=== PATIENT | female | born 1985 | race Caucasian/White ===

== ENCOUNTER 2018-12-15 12:21 | Inpatient (IN) ==
--- NOTE | 2018-12-15 12:24 | Emergency Department Note ---
Disposition Clinical Impression: Diverticulitis, Abscess Leukocytosis Qualifiers: Leukocytosis type: unspecified Qualified Code(s): D72.829 - Elevated white blood cell count, unspecified Disposition: Admitted As Inpatient Condition: Fair Referrals: Isaac Beltran DO [Primary Care Provider] - Forms: Work/School Release, ED Satisfaction Letter Time of Disposition: 15:44 General Adult HPI - General Chief complaint: ED Abdominal Pain Stated complaint: ABD pain Time Seen by Provider: 12/15/18 12:24 Source: patient Mode of arrival: ambulatory Limitations: no limitations Nursing Notes Reviewed: Yes Vital Signs Reviewed: Yes - History of Present Illness HPI Narrative: 33-year-old female coming in today with chief complaint of abdominal pain and increasing pain with urination. She states that approximately 2 weeks ago she was treated for diverticulitis with ciprofloxacin and Flagyl. She states that her abdominal pain resolved but over the last 2 days has been increasing in severity. Abdominal pain is in the lower left quadrant rated as a 3 or 4 out of 10 and is sharp/crampy in nature. As of right now her pain is constant. She is not taking any medications prior to coming into the emergency room and states that nothing makes her pain better or worse. denies any fevers, chills, bloody diarrhea, nausea or vomiting. Able to tolerate food and water. She denies any chest pain, shortness of breath, dizziness, metastasis or hematochezia, loss of sensation or weakness. Pt Subjective Complaint: abd pain - Related Data Home Medications Medication Instructions Recorded Confirmed Sertraline [Zoloft] 50 mg PO DAILY 06/13/17 12/15/18 Loratadine [Claritin] 10 mg PO DAILY 11/23/18 12/15/18 Allergies Allergy/AdvReac Type Severity Reaction Status Date / Time azithromycin [From Zithromax] Allergy Hives Verified 11/15/18 20:17 ibuprofen Allergy Hives Verified 11/15/18 20:17 lamotrigine [From Lamictal] Allergy Hives Verified 11/15/18 20:17 Penicillins [PCN] Allergy Hives Verified 11/15/18 20:17 tramadol AdvReac Nausea Verified 11/15/18 20:17 Review of Systems: Constitutional: denies fever, chills Cardio: denies chest pain, palpiltations Lungs: denies SOB, wheeze, cough, hemoptysis GI: denies N/V/D, hematochezia; admits abdominal pain : denies dysuria, hematuria MSK: denies decreased ROM, joint swelling or stiffness; can ambultate on their own Neuro: deneis numbness or tingling, denies dizziness Skin: denies open wounds or cuts Psych: denies anxiety, depression Allergy: multiple medication allergies All systems ED: reviewed and negative except as stated. Review of Systems: As Per [facility] Past Medical History - Past Medical History Attestation: Yes The following information was validated with the patient. 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 Eyes: Sclera anicteric. ENT: Mucous membranes moist. Heart: Regular rate and rhythm without appreciable murmur. S1S2 CTA Neck: no JVD Lungs: Normal respiratory pattern without distress, lungs clear to auscultation b/l. No wheeze, rhonchi, rales or stridor Abdomen: Abdomen with tenderness to palpation in the lower left quadrant without any peritoneal signs. No rebound, there is voluntary guarding. No bruising noted to the abdomen. No surgical scars present. Skin: Warm and dry without rash. Neurologic: Awake and alert with normal speech and mental status. Pupils are equal. Moves all extremities equally well. No focal deficits or lateralizing signs. Follows command. Psychiatric: Mood and affect appropriate. Musculoskeletal: No peripheral edema. No asymmetrical swelling, no calf tenderness - General Limitations: no limitations General appearance: alert, in no apparent distress Course Course Narrative: Patient is a 33-year-old female with a recent history of diverticulitis. We will obtain a basic labs. Also will obtain a urinalysis due to increasing dysuria as per the patient. CT with contrast of the abdomen pending to rule out any abscess or fistula formation. Pt will be given zofran for nausea. Disposition pending. - Reevaluation(s) Reevaluation #1: pt Informed of her lab results. Agreeable to the plan however is under quite a lot of distress over not being able to smoke a cigarette. Time: 14:40 - Consultations Consultation #1: spoke to acute care surgery on-call, Dr. Freeman, he states to have the patient medicated with a surgery consult as an hospital as his primary. Also requested a interventional radiology consult order be placed. Time: 14:34 Consultation #2: Potential interventional radiology, Dr. Barahona Time: 14:47 Consultation #3: To Dr. Fierro, she informed me that the acute care surgery pv design and installation technician would be taking the patient for admission. Time: 15:47 Vital Signs Temperature 98.6 F 12/15/18 12:23 Pulse Rate 110 12/15/18 12:23 Respiratory Rate 18 12/15/18 12:23 Blood Pressure 130/88 12/15/18 12:23 O2 Sat by Pulse Oximetry 98 12/15/18 12:23 Temperature 98.6 F 12/15/18 12:33 Pulse Rate 84 12/15/18 15:24 Respiratory Rate 18 12/15/18 15:24 Blood Pressure 204/120 12/15/18 15:31 O2 Sat by Pulse Oximetry 100 12/15/18 15:24 Oxygen Delivery Oxygen Delivery Room Air Medical Decision Making - MDM Narrative Medical decision making narrative: Pt coming in with increasing abdominal pain and was found to have a worsening diverticulitis. She has a leukocytosis of 14.1 however there are no other remarkable labs. CT findings showed worsening sigmoid diverticulitis and been interval development of adjacent abscess with internal gas measuring 5.9 x 6.0 x 5.1cm. No definite intraperitoneal free air noted. Mass effect on the underlying urinary bladder by the abscess along with likely some reactive wall thickening to the superior urinary bladder wall. Started on cefepime and Flagyl to cover for intra-abdominal abdominal pathogens as well as anaerobes. Spoke to Dr. Pollock who is the on-call acute care surgeon, will be admitting the patient and interventional radiology consulted. Made aware of the lab results as well as the CT scan findings and she is acceptable to admission. She has no further questions agreeable to the plan. 1430: spoke to Dr. Barahona. He will be taking the patient back for an drainage of the abscess. Acute Care surgery and has put in orders and has put in on admission order. The patient will be moved up to the floor in a stable for transfer. - Medical Records Medical records reviewed: Yes I reviewed the patient's medical records. - Lab Data Lab results reviewed: Yes I reviewed the patient's lab results. Result diagrams: 12/15/18 12:40 12/15/18 12:40 Lab Results 12/15/18 12/15/18 12/15/18 Range/Units 12:40 12:40 12:40 WBC 14.8 H (4.3-11.1) K/mcL RBC 4.32 (3.82-4.97) M/mcL Hgb 13.2 (11.5-15.4) g/dL Hct 41.2 (35.3-44.9) % MCV 95.4 (83.0-100.0) fL MCH 30.6 (28.0-33.3) pg MCHC 32.0 (31.6-35.5) g/dL RDW 12.9 (11.5-14.5) % Plt Count 388 (140-400) K/mcL MPV 9.3 L (9.4-12.4) fL Immature Gran % 0.5 (0-4) % Seg Neutrophils % 81.4 % Lymphocytes % 11.4 % Monocytes % 5.3 % Eosinophils % 1.2 % Basophils % 0.2 % Neutrophils # 12.1 H (1.6-8.9) K/mcL Lymphocytes # 1.7 (0.6-4.6) K/mcL Monocytes # 0.8 (0.0-1.3) K/mcL Eosinophils # 0.2 (0.0-0.6) K/mcL Basophils # 0.0 (0.0-0.2) K/mcL PT (9.4-12.1) Seconds INR Sodium 136 (136-145) mEq/L Potassium 3.8 (3.5-5.1) mEq/L Chloride 104 (98-107) mEq/L Carbon Dioxide 26 (23-29) mEq/L BUN 9 (6-20) mg/dL Creatinine 0.75 (0.60-1.20) mg/dL Est GFR ( Amer) > 60 (> 60) Est GFR (Non-Af Amer) > 60 (> 60) BUN/Creatinine Ratio 12 (6-26) Glucose 105 (70-105) mg/dL Calculated Osmolality 281 (280-300) Calcium 8.8 (8.6-10.3) mg/dL Urine Color Yellow (Yellow) Urine Clarity Clear (Clear) Urine pH 6.0 (5.0-8.0) pH Units Ur Specific [place] 1.014 (1.010-1.025) Urine Protein Trace (Neg-Trace) mg/dL Urine Glucose (UA) Normal (Normal) mg/dL Urine Ketones Negative (Negative) mg/dL Urine Blood Small H (Negative) Urine Nitrite Negative (Negative) Urine Bilirubin Negative (Negative) Urine Urobilinogen Normal (Normal) mg/dL Ur Leukocyte Esterase Negative (Negative) Urine Microscopic RBC 5-15 H (0-3) per hpf Urine Microscopic WBC 0-3 (0-3) per hpf Ur Squamous Epith Cells Moderate H (None-Few) per lpf Urine Bacteria None Seen (None-Few) per hpf Hyaline Casts None Seen (None-Few) per lpf Ur Culture Indicated? NO (NO) 12/15/18 Range/Units 14:32 WBC (4.3-11.1) K/mcL RBC (3.82-4.97) M/mcL Hgb (11.5-15.4) g/dL Hct (35.3-44.9) % MCV (83.0-100.0) fL MCH (28.0-33.3) pg MCHC (31.6-35.5) g/dL RDW (11.5-14.5) % Plt Count (140-400) K/mcL MPV (9.4-12.4) fL Immature Gran % (0-4) % Seg Neutrophils % % Lymphocytes % % Monocytes % % Eosinophils % % Basophils % % Neutrophils # (1.6-8.9) K/mcL Lymphocytes # (0.6-4.6) K/mcL Monocytes # (0.0-1.3) K/mcL Eosinophils # (0.0-0.6) K/mcL Basophils # (0.0-0.2) K/mcL PT 12.8 H (9.4-12.1) Seconds INR 1.1 Sodium (136-145) mEq/L Potassium (3.5-5.1) mEq/L Chloride (98-107) mEq/L Carbon Dioxide (23-29) mEq/L BUN (6-20) mg/dL Creatinine (0.60-1.20) mg/dL Est GFR ( Amer) (> 60) Est GFR (Non-Af Amer) (> 60) BUN/Creatinine Ratio (6-26) Glucose (70-105) mg/dL Calculated Osmolality (280-300) Calcium (8.6-10.3) mg/dL Urine Color (Yellow) Urine Clarity (Clear) Urine pH (5.0-8.0) pH Units Ur Specific [place] (1.010-1.025) Urine Protein (Neg-Trace) mg/dL Urine Glucose (UA) (Normal) mg/dL Urine Ketones (Negative) mg/dL Urine Blood (Negative) Urine Nitrite (Negative) Urine Bilirubin (Negative) Urine Urobilinogen (Normal) mg/dL Ur Leukocyte Esterase (Negative) Urine Microscopic RBC (0-3) per hpf Urine Microscopic WBC (0-3) per hpf Ur Squamous Epith Cells (None-Few) per lpf Urine Bacteria (None-Few) per hpf Hyaline Casts (None-Few) per lpf Ur Culture Indicated? (NO) - Radiology Data Radiology results reviewed: Yes I reviewed the patient's radiology results. Abdomen/Pelvis CT 12/15/18 12:37 IMPRESSION: Persistent findings compatible with sigmoid diverticulitis as compared to prior exam 11/29/2018, worsened. In addition there has been interval development of adjacent abscess with internal gas measuring 5.9 x 6.0 x 5.1 cm. No definite intraperitoneal free air noted. Mass effect on the underlying urinary bladder by the abscess along with likely some reactive wall thickening to the superior urinary bladder wall. Persistent small amount of free fluid predominantly within the pelvis, likely reactive. D/ / 12/15/2018 14:09:03 Armando Santos MD / tamanna Interpreting Provider: Armadno Santos MD Attestation Statement - Attestation Attestation: I reviewed the residents documentation and agree with the residents assessment and plan of care. I have personally had face to face time with the patient. (Brief History, Brief Exam, and MDM) I personally supervised and was present for the richards/critical portions of the following procedures completed by the resident: (add procedures performed here). [id number] time provided Patient arrives complaining of left lower quadrant pain. She has a history of uncomplicated diverticulitis which was diagnosed 2 weeks ago. She does not appear in any acute distress on exam
[2018-12-15] MEDS ORDERED: Ondansetron 4 MG/2 ML VIAL IVP ONE (12:37)
[2018-12-15] MEDS ORDERED: Isovue-370 500 ML BOTTLE IVP ONE (12:37)
[2018-12-15 12:50] LABS: Bilirubin,Urine Negative (Negative); Blood,Urine Small (Negative); Clarity,Urine Clear (Clear); Color,Urine Yellow (Yellow); Glucose,Urine (UA) Normal (Normal); Ketones,Urine Negative (Negative); Leukocyte Esterase,Urine Negative (Negative); Nitrite,Urine Negative (Negative); Protein,Urine Trace mg/dL (Neg-Trace); Specific Gravity,Urine 1.014 (1.010-1.025); Urobilinogen,Urine Normal (Normal)
[2018-12-15 12:52] LABS: Bacteria,Urine None Seen per hpf (None-Few); Hyaline Casts,Urine None Seen per lpf (None-Few); Squamous Epithelial Cell,Urine Moderate per lpf (None-Few); WBC,Urine 0-3 per hpf (0-3)
[2018-12-15 12:53] LABS: Basophils % 0.2 %; Eosinophils # 0.2 K/mcL (0.0-0.6); Eosinophils % 1.2 %; Hematocrit 41.2 % (35.3-44.9); Hemoglobin 13.2 g/dL (11.5-15.4); Immature Granulocytes % 0.5 % (0-4); Lymphocytes # 1.7 K/mcL (0.6-4.6); Lymphocytes % 11.4 %; Mean Corpuscular Hemoglobin 30.6 pg (28.0-33.3); Mean Corpuscular Volume 95.4 fL (83.0-100.0); Mean Platelet Volume 9.3 fL (9.4-12.4); Monocytes # 0.8 K/mcL (0.0-1.3); Monocytes % 5.3 %; Neutrophils # 12.1 K/mcL (1.6-8.9); Platelet Count 388 K/mcL (140-400); Red Blood Count 4.32 M/mcL (3.82-4.97); Red Cell Distribution Width 12.9 % (11.5-14.5); Segmented Neutrophils % 81.4 %; White Blood Count 14.8 K/mcL (4.3-11.1)
[2018-12-15 13:12] LABS: BUN/Creatinine Ratio 12 (6-26); Blood Urea Nitrogen 9 mg/dL (6-20); Calcium 8.8 mg/dL (8.6-10.3); Carbon Dioxide 26 mEq/L (23-29); Chloride 104 mEq/L (98-107); Glucose 105 mg/dL (70-105); Osmolality,Calculated 281 (280-300); Potassium 3.8 mEq/L (3.5-5.1); Sodium 136 mEq/L (136-145); eGFR For African Americans > 60 (> 60); eGFR For Non-African Americans > 60 (> 60)
[2018-12-15] MEDS ORDERED: Piperacillin/Tazobactam 3.375 GM in 0.9 % Sodium Chloride Mini Bag 100 ML IVPB ONE (14:17)
[2018-12-15] MEDS ORDERED: Cefepime HCl 2,000 MG in Water for inj. (sterile) 20 ML IVP ONE (14:30)
[2018-12-15] MEDS ORDERED: MetroNIDAZOLE 500 MG/100 ML 500 MG/100 ML BAG IVPB ONE (14:30)
[2018-12-15] MEDS ORDERED: *HR* Midazolam HCl 2 MG/2 ML VIAL IVP ONE (14:44)
[2018-12-15] MEDS ORDERED: *HR* FentaNYL (PF) 100 MCG/2 ML VIAL IVP ONE (14:44)
--- NOTE | 2018-12-15 14:46 | Pre-Sedation Evaluation ---
Pre-sedation evaluation - Pre-sedation checklist Date of procedure: 12/15/18 Procedure: abscess drainage Recent Vitals: Last Vital Signs Temp 98.6 F 12/15/18 12:33 Pulse 82 12/15/18 14:31 Resp 18 12/15/18 14:31 BP 125/61 12/15/18 14:31 Pulse Ox 100 12/15/18 14:31 H&P (including ROS) documented in medical record: Yes Dietary Status: NPO 6 hours prior to procedure Airway Assessment: Patient can open mouth completely, TMJ function normal, Micrognathia (under-bite, receding chin) absent, Neck with adequate range of motion Possible difficult airway: No ASA Classification *see protocol: CLASS II-Mild systemic disease Plan of Care: Pt appropriate candidate for procedure/moderate/conscious sedation, Risks/benefits of procedure/sedation discussed w/ patient/family, If not NPO; Risk of intake outweiged by necessity to perform procedure Cardiac Registry (Cardio Only) - Clincal Frailty Scale Clinical Frailty Scale: Managing Well
[2018-12-15 14:56] LABS: INR 1.1; Prothrombin Time 12.8 Seconds (9.4-12.1)
[2018-12-15] MEDS ORDERED: 0.9 % Sodium Chloride 500 ML ONE (14:59)
--- NOTE | 2018-12-15 15:03 | AcuteCare Surgery Consult Note ---
Date of Encounter: 12/15/18 Time of Encounter: 15:00 Assessment and Plan (1) Diverticulitis of colon with perforation Current Visit: Yes Status: Acute Qualifiers: Diverticulitis bleeding: unspecified bleeding status Qualified Code(s): K57.20 - Diverticulitis of large intestine with perforation and abscess without bleeding Past Med Surg Social Fam HX - Past Medical History Medical history: asthma Additional medical history: diverticulitis, ovarion cysts on left ovary Psychiatric history: anxiety, bipolar, depression - Past Surgical History Surgical History: , hysterectomy, other Additional surgical history: R shoulder - Social History Smoking Status: Current every day smoker Smokeless Tobacco Status: No Alcohol use: none Drug use: none Medications and Allergies Sertraline [Zoloft] 50 mg PO DAILY 06/13/17 [History] Loratadine [Claritin] 10 mg PO DAILY 11/23/18 [History] Allergy/AdvReac Type Severity Reaction Status Date / Time azithromycin [From Zithromax] Allergy Hives Verified 11/15/18 20:17 ibuprofen Allergy Hives Verified 11/15/18 20:17 lamotrigine [From Lamictal] Allergy Hives Verified 11/15/18 20:17 Penicillins [PCN] Allergy Hives Verified 11/15/18 20:17 tramadol AdvReac Nausea Verified 11/15/18 20:17 Review of Systems All systems PM: The remainder of the systems were reviewed and are negative General Surgery Exam Initial Vital Signs Temp Pulse Resp BP Pulse Ox 98.6 F 110 18 130/88 98 12/15/18 12:23 12/15/18 12:23 12/15/18 12:23 12/15/18 12:23 12/15/18 12:23 Exam Initial Vital Signs Temp Pulse Resp BP Pulse Ox 98.6 F 110 18 130/88 98 12/15/18 12:23 12/15/18 12:23 12/15/18 12:23 12/15/18 12:23 12/15/18 12:23 Results - Labs 12/15/18 12:40 12/15/18 12:40 Abnormal lab results WBC 14.8 K/mcL (4.3-11.1) H 12/15/18 12:40 MPV 9.3 fL (9.4-12.4) L 12/15/18 12:40 Neutrophils # 12.1 K/mcL (1.6-8.9) H 12/15/18 12:40 Urine Blood Small (Negative) H 12/15/18 12:40 Urine Microscopic RBC 5-15 per hpf (0-3) H 12/15/18 12:40 Ur Squamous Epith Cells Moderate per lpf (None-Few) H 12/15/18 12:40 Diabetes panel 12/15/18 Range/Units 12:40 Sodium 136 (136-145) mEq/L Potassium 3.8 (3.5-5.1) mEq/L Chloride 104 (98-107) mEq/L Carbon Dioxide 26 (23-29) mEq/L BUN 9 (6-20) mg/dL Creatinine 0.75 (0.60-1.20) mg/dL Glucose 105 (70-105) mg/dL Calcium 8.8 (8.6-10.3) mg/dL Calcium panel 12/15/18 Range/Units 12:40 Calcium 8.8 (8.6-10.3) mg/dL Pituitary panel 12/15/18 Range/Units 12:40 Sodium 136 (136-145) mEq/L Potassium 3.8 (3.5-5.1) mEq/L Chloride 104 (98-107) mEq/L Carbon Dioxide 26 (23-29) mEq/L BUN 9 (6-20) mg/dL Creatinine 0.75 (0.60-1.20) mg/dL Glucose 105 (70-105) mg/dL Calcium 8.8 (8.6-10.3) mg/dL Adrenal panel 12/15/18 Range/Units 12:40 Sodium 136 (136-145) mEq/L Potassium 3.8 (3.5-5.1) mEq/L Chloride 104 (98-107) mEq/L Carbon Dioxide 26 (23-29) mEq/L BUN 9 (6-20) mg/dL Creatinine 0.75 (0.60-1.20) mg/dL Glucose 105 (70-105) mg/dL Calcium 8.8 (8.6-10.3) mg/dL All other labs normal. Consult Discharge Plan - Plan
[2018-12-15] MEDS ORDERED: Ondansetron 4 MG/2 ML VIAL IVP PRN (15:09)
[2018-12-15] MEDS ORDERED: *HR* Promethazine 25 MG/ML VIAL IVP PRN (15:09)
--- NOTE | 2018-12-15 15:19 | Acute Care Surgery H&P ---
<Delia Gray Salvador - Last Filed: 12/15/18 15:30> Date of Encounter: 12/15/18 Time of Encounter: 15:15 Assessment and Plan (1) Diverticulitis of colon with perforation Current Visit: Yes Status: Acute The assessment and plan as outlined above was discussed with the patient and/or family members who expressed understanding and agreement. All questions were answered. Patient was treated as outpatient (from ER) for diverticulitis (CT 11/29/2018 with acute sigmoid diverticulitis with at least moderate inflammatory changes). She was started on 7 days Cipro Flagyl. She re-presented to the emergency department on 12/15/2018 with complaints of worsening abdominal pain. There had been an interval development of an abscess with internal gas measuring 5.9 x 6.0 x 5.1 cm with no definite interest peritoneal free air. Interventional radiolog y, was consulted by the emergency department, for drain placement. Cultures of abdominal abscess aspirate have been placed. Blood cultures x2 have been ordered per the emergency department. Patient has an allergy to penicillins. We will continue IV ciprofloxacin and metronidazole. She has received one dose of set the Victoria while in the emergency department. Continue NPO except medication status IV fluids IV antibiotics repeat a.m. labs continue to closely monitor drain care consult social worker masters for home healthcare/drain management (do not anticipate the patient will discharge over the weekend) GI and DVT prophylaxis Qualifiers: Diverticulitis bleeding: unspecified bleeding status Qualified Code(s): K57.20 - Diverticulitis of large intestine with perforation and abscess without bleeding (2) Smoking addiction Current Visit: Yes Status: Acute The assessment and plan as outlined above was discussed with the patient and/or family members who expressed understanding and agreement. All questions were answered. Smoking cessation education nicotine patch History of Present Illness Chief complaint: Abdominal pain HPI: Ms. Smith is a 33 year old female who was treated as outpatient (from ER) for diverticulitis (CT 11/29/2018 with acute sigmoid diverticulitis with at least moderate inflammatory changes). She was started on 7 days Cipro Flagyl. She followed up with her PCP on 12/06/2018 at which time her Cipro and Flagyl were extended for a 10 day course. She re-presented to the emergency department on 12/15/2018 for abdominal pain that had resolved but over the last 2 days it had became much worse, left lower quadrant pain, sharpen crampy, and is now constant. Per record review she denied fever, chills, bloody diarrhea, nausea, or vomiting. Her clinical course thus far has included laboratory studies which noted white blood cell count 14.8, a CT of the abdomen and pelvis which noted progression of diverticulitis now with an abscess, she was given one dose of cefipime and IV Flagyl in the ER. Interventional radiology was consulted and the patient is being transferred to IR for drain placement. Past Med Surg Social Fam HX - Past Medical History Source: patient, old records reviewed Medical history: asthma Additional medical history: diverticulitis, ovarion cysts on left ovary, alopecia,areata Psychiatric history: anxiety, bipolar, depression - Past Surgical History Surgical History: , hysterectomy, other (LEEP; Uterine ablation) Additional surgical history: R shoulder - Social History Smoking Status: Current every day smoker Smokeless Tobacco Status: No Alcohol use: none Drug use: none Medications and Allergies Sertraline [Zoloft] 50 mg PO DAILY 06/13/17 [History] Loratadine [Claritin] 10 mg PO DAILY 11/23/18 [History] Allergy/AdvReac Type Severity Reaction Status Date / Time azithromycin [From Zithromax] Allergy Hives Verified 11/15/18 20:17 ibuprofen Allergy Hives Verified 11/15/18 20:17 lamotrigine [From Lamictal] Allergy Hives Verified 11/15/18 20:17 Penicillins [PCN] Allergy Hives Verified 11/15/18 20:17 tramadol AdvReac Nausea Verified 11/15/18 20:17 Review of Systems All systems PM: reviewed and no additional remarkable complaints except as stated All systems PM: The remainder of the systems were reviewed and are negative General Surgery Exam Initial Vital Signs Temp Pulse Resp BP Pulse Ox 98.6 F 110 18 130/88 98 12/15/18 12:23 12/15/18 12:23 12/15/18 12:23 12/15/18 12:23 12/15/18 12:23 Results - Labs 12/15/18 12:40 12/15/18 12:40 Abnormal lab results WBC 14.8 K/mcL (4.3-11.1) H 12/15/18 12:40 MPV 9.3 fL (9.4-12.4) L 12/15/18 12:40 Neutrophils # 12.1 K/mcL (1.6-8.9) H 12/15/18 12:40 PT 12.8 Seconds (9.4-12.1) H 12/15/18 14:32 Urine Blood Small (Negative) H 12/15/18 12:40 Urine Microscopic RBC 5-15 per hpf (0-3) H 12/15/18 12:40 Ur Squamous Epith Cells Moderate per lpf (None-Few) H 12/15/18 12:40 Diabetes panel 12/15/18 Range/Units 12:40 Sodium 136 (136-145) mEq/L Potassium 3.8 (3.5-5.1) mEq/L Chloride 104 (98-107) mEq/L Carbon Dioxide 26 (23-29) mEq/L BUN 9 (6-20) mg/dL Creatinine 0.75 (0.60-1.20) mg/dL Glucose 105 (70-105) mg/dL Calcium 8.8 (8.6-10.3) mg/dL Calcium panel 12/15/18 Range/Units 12:40 Calcium 8.8 (8.6-10.3) mg/dL Pituitary panel 12/15/18 Range/Units 12:40 Sodium 136 (136-145) mEq/L Potassium 3.8 (3.5-5.1) mEq/L Chloride 104 (98-107) mEq/L Carbon Dioxide 26 (23-29) mEq/L BUN 9 (6-20) mg/dL Creatinine 0.75 (0.60-1.20) mg/dL Glucose 105 (70-105) mg/dL Calcium 8.8 (8.6-10.3) mg/dL Adrenal panel 12/15/18 Range/Units 12:40 Sodium 136 (136-145) mEq/L Potassium 3.8 (3.5-5.1) mEq/L Chloride 104 (98-107) mEq/L Carbon Dioxide 26 (23-29) mEq/L BUN 9 (6-20) mg/dL Creatinine 0.75 (0.60-1.20) mg/dL Glucose 105 (70-105) mg/dL Calcium 8.8 (8.6-10.3) mg/dL All other labs normal. - Imaging CT scan - abdomen: report reviewed, image reviewed CT scan - pelvis: report reviewed, image reviewed <Chao Freeman M - Last Filed: 12/16/18 00:57> Date of Encounter: 12/15/18 Assessment and Plan (1) Diverticulitis of colon with perforation Current Visit: Yes Status: Acute The assessment and plan as outlined above was discussed with the patient and/or family members who expressed understanding and agreement. All questions were answered. Qualifiers: Diverticulitis bleeding: unspecified bleeding status Qualified Code(s): K57.20 - Diverticulitis of large intestine with perforation and abscess without bleeding (2) Smoking addiction Current Visit: Yes Status: Acute The assessment and plan as outlined above was discussed with the patient and/or family members who expressed understanding and agreement. All questions were answered. History of Present Illness HPI: Ms. Smith is a 33 year old female Review of Systems All systems PM: The remainder of the systems were reviewed and are negative General Surgery Exam Initial Vital Signs Temp Pulse Resp BP Pulse Ox 98.6 F 110 18 130/88 98 12/15/18 12:23 12/15/18 12:23 12/15/18 12:23 12/15/18 12:23 12/15/18 12:23 Results - Labs 12/15/18 12:40 12/15/18 12:40 Abnormal lab results WBC 14.8 K/mcL (4.3-11.1) H 12/15/18 12:40 MPV 9.3 fL (9.4-12.4) L 12/15/18 12:40 Neutrophils # 12.1 K/mcL (1.6-8.9) H 12/15/18 12:40 PT 12.8 Seconds (9.4-12.1) H 12/15/18 14:32 Urine Blood Small (Negative) H 12/15/18 12:40 Urine Microscopic RBC 5-15 per hpf (0-3) H 12/15/18 12:40 Ur Squamous Epith Cells Moderate per lpf (None-Few) H 12/15/18 12:40 Diabetes panel 12/15/18 Range/Units 12:40 Sodium 136 (136-145) mEq/L Potassium 3.8 (3.5-5.1) mEq/L Chloride 104 (98-107) mEq/L Carbon Dioxide 26 (23-29) mEq/L BUN 9 (6-20) mg/dL Creatinine 0.75 (0.60-1.20) mg/dL Glucose 105 (70-105) mg/dL Calcium 8.8 (8.6-10.3) mg/dL Calcium panel 12/15/18 Range/Units 12:40 Calcium 8.8 (8.6-10.3) mg/dL Pituitary panel 12/15/18 Range/Units 12:40 Sodium 136 (136-145) mEq/L Potassium 3.8 (3.5-5.1) mEq/L Chloride 104 (98-107) mEq/L Carbon Dioxide 26 (23-29) mEq/L BUN 9 (6-20) mg/dL Creatinine 0.75 (0.60-1.20) mg/dL Glucose 105 (70-105) mg/dL Calcium 8.8 (8.6-10.3) mg/dL Adrenal panel 12/15/18 Range/Units 12:40 Sodium 136 (136-145) mEq/L Potassium 3.8 (3.5-5.1) mEq/L Chloride 104 (98-107) mEq/L Carbon Dioxide 26 (23-29) mEq/L BUN 9 (6-20) mg/dL Creatinine 0.75 (0.60-1.20) mg/dL Glucose 105 (70-105) mg/dL Calcium 8.8 (8.6-10.3) mg/dL All other labs normal. - Attending Attestation I have personally performed a face to face evaluation on this patient. I have reviewed and agree with the care plan. History and Exam by me shows: I personally reviewed the above history and physical examination with the nurse practitioner and agree with the above plan. Patient has been having symptoms of lower abdominal pain for several days. She has previously been treated for diverticulitis and was also discharged home on oral antibiotics but because of continued increasing abdominal pain re-presented to the emergency room. CT scan showed evidence of a abscess that the sigmoid colon and bladder. She is currently in her room after having a percutaneous drain placed by interventional radiology. She is having some abdominal tenderness at this time. We will make certain that she has appropriate pain medication and I have explained to the patient I will at the most allow full liquids since we do not want food to traverse the colon in particular make her symptoms worse. Will start IV antibiotics and she needs to have at least 48 hours of IV antibiotics before transitioning to oral antibiotics. Will follow physical exam findings and repeat her labs in the morning.
[2018-12-15] MEDS ORDERED: *HR* Promethazine 25 MG/ML VIAL IVP ONE (15:30)
--- NOTE | 2018-12-15 15:34 | IR Procedure Note ---
Date of procedure: 12/15/18 Consent Obtained: Written consent Timeout: Correct patient and procedure verified, Correct site verified, Time out performed, Skin prep completed Local anesthetic: Lidocaine 1% Was there an review assistant present: No Estimated blood loss (cc): 0 Complications: None; Tolerated procedure well Indications: pelvic abscess Procedure Performed: drainage Site/Technique: anterior approach, 143F drain Results/Findings (any specimens removed): 80cc of pus removed and sent for cultures Post Procedure Treatment Plan: recovery, dc to floor Specimen: pus
[2018-12-15] MEDS: *HR* Heparin 5,000 UNIT/ML VIAL SQ SCH (17:04)
[2018-12-15] MEDS: 0.9 % Sodium Chloride 1,000 ML IVC SCH (17:11)
[2018-12-15] MEDS: Acetaminophen IV 1,000 MG/100 ML INFUS..BTL IVPB SCH ×2 (19:45→23:54)
[2018-12-15] MEDS: MetroNIDAZOLE 500 MG/100 ML 500 MG/100 ML BAG IVPB SCH (22:59)
[2018-12-16] MEDS: 0.9 % Sodium Chloride 1,000 ML IVC SCH ×3 (01:28→14:19)
[2018-12-16] MEDS: *HR* Heparin 5,000 UNIT/ML VIAL SQ SCH ×2 (05:56→17:16)
[2018-12-16] MEDS: Acetaminophen IV 1,000 MG/100 ML INFUS..BTL IVPB SCH ×3 (05:58→17:15)
[2018-12-16] MEDS: MetroNIDAZOLE 500 MG/100 ML 500 MG/100 ML BAG IVPB SCH ×2 (06:49→14:21)
[2018-12-16 07:07] LABS: Basophils % 0.3 %; Eosinophils # 0.2 K/mcL (0.0-0.6); Eosinophils % 2.6 %; Hematocrit 36.9 % (35.3-44.9); Immature Granulocytes % 0.8 % (0-4); Lymphocytes # 1.3 K/mcL (0.6-4.6); Mean Corpuscular HGB Conc 31.4 g/dL (31.6-35.5); Mean Corpuscular Volume 98.7 fL (83.0-100.0); Mean Platelet Volume 9.7 fL (9.4-12.4); Monocytes # 0.5 K/mcL (0.0-1.3); Monocytes % 7.2 %; Neutrophils # 5.3 K/mcL (1.6-8.9); Platelet Count 316 K/mcL (140-400); Red Blood Count 3.74 M/mcL (3.82-4.97); Red Cell Distribution Width 13.2 % (11.5-14.5); Segmented Neutrophils % 72.1 %
[2018-12-16 07:08] LABS: Hemoglobin 11.6 g/dL (11.5-15.4); White Blood Count 7.4 K/mcL (4.3-11.1)
[2018-12-16 07:26] LABS: BUN/Creatinine Ratio 8 (6-26); Blood Urea Nitrogen 6 mg/dL (6-20); Calcium 8.6 mg/dL (8.6-10.3); Carbon Dioxide 27 mEq/L (23-29); Chloride 101 mEq/L (98-107); Glucose 100 mg/dL (70-105); Magnesium 2.1 mg/dL (1.6-2.6); Osmolality,Calculated 280 (280-300); Phosphorous 3.2 mg/dL (2.7-4.5); Potassium 3.6 mEq/L (3.5-5.1); Sodium 136 mEq/L (136-145); eGFR For African Americans > 60 (> 60); eGFR For Non-African Americans > 60 (> 60)
[2018-12-16] MEDS: Pantoprazole 40 MG VIAL IVP SCH (07:58)
[2018-12-16] MEDS: Nicotine 14 MG PATCH.TD24 TD SCH (07:58)
--- NOTE | 2018-12-16 10:47 | AcuteCareSurgery Progress Note ---
Date of Encounter: 12/16/18 Time of Encounter: 10:45 - Assessment and Plan (1) Diverticulitis of colon with perforation Current Visit: Yes Status: Acute I explained to the patient that I am pleased that she is feeling better. Her white count has improved/decreased. The patient is somewhat anxious and is frustrated and stated that she once to go outside and smoke a cigarette which I explained she cannot do. I do think, however, it would be appropriate for us to go ahead and advance her diet to soft foods and see how she tolerates this change. Will continue with IV antibiotics. If she continues to do well over the night then we will consider possible discharge home within the next 24 hours. Will also have our charge nurse come in to talk to the patient given her frustrations with being in the hospital which, I completely understand given her lower abdominal pain and this infection that has been somewhat persistent. Qualifiers: Diverticulitis bleeding: unspecified bleeding status Qualified Code(s): K57.20 - Diverticulitis of large intestine with perforation and abscess without bleeding (2) Smoking addiction Current Visit: Yes Status: Acute Subjective Patient reports: other (Patient somewhat anxious. States pain has improved. Flauts. Decreased pain with urination.) Objective Vital Signs - Last 8 Hours Temp Pulse Resp BP Pulse Ox 12/16/18 08:10 97 12/16/18 07:57 97.9 F 62 17 113/79 97 12/16/18 03:38 97.3 F L 50 18 122/84 96 Intake and Output 12/15/18 12/16/18 12/16/18 23:59 07:59 15:59 Intake Total 400 / 520 1900 / 2520 620 / 2520 Output Total / 20 10 10 0 / 10 Balance 380 / 500 1890 / 2510 620 / 2510 Intake: IV Fluids 400 / 520 1500 / 2000 500 / 2000 0.9 % Sodium Chloride 1,000 ML 1000 / 1500 500 / 1500 @ 100 mls/hr IVC .Q10H SARAI Rx#: [id number] Ofirmev 1,000 mg/100 ml 1,000 100 / 100 200 / 200 mg In 100 ml @ 400 mls/hr IVPB Q6HR SARAI Rx#:[id number] Cipro Premix 400 MG/200 ML 400 200 / 200 200 / 200 mg In 200 ml @ 200 mls/hr IVPB Q12HR [facility]AI Rx#:[id number] Flagyl Premix 500 MG/100 ML 500 100 / 100 100 / 100 mg In 100 ml @ 100 mls/hr IVPB Q8H SARAI Rx#:[id number] Oral 400 / 520 120 / 520 Output: Wound Drainage 10 0 / 10 Left Lower Abdomen 0 / 10 Other: Meal Breakfast # Voids 1 1 - General physical appearance well nourished, no distress - Respiratory normal expansion, normal respiratory effort - Abdomen Abdomen: Present: bowel sounds present, tender (Alternatives to palpation in the left lower quadrant and pelvis. No masses palpated. Drain in place and has her sanguinous fluid) - Labs 12/16/18 06:34 12/16/18 06:34 Diabetes panel 12/15/18 12/16/18 Range/Units 12:40 06:34 Sodium 136 136 (136-145) mEq/L Potassium 3.8 3.6 (3.5-5.1) mEq/L Chloride 104 101 (98-107) mEq/L Carbon Dioxide 26 27 (23-29) mEq/L BUN 9 6 (6-20) mg/dL Creatinine 0.75 0.77 (0.60-1.20) mg/dL Glucose 105 100 (70-105) mg/dL Calcium 8.8 8.6 (8.6-10.3) mg/dL Calcium panel 12/15/18 12/16/18 Range/Units 12:40 06:34 Calcium 8.8 8.6 (8.6-10.3) mg/dL Phosphorus 3.2 (2.7-4.5) mg/dL Pituitary panel 12/15/18 12/16/18 Range/Units 12:40 06:34 Sodium 136 136 (136-145) mEq/L Potassium 3.8 3.6 (3.5-5.1) mEq/L Chloride 104 101 (98-107) mEq/L Carbon Dioxide 26 27 (23-29) mEq/L BUN 9 6 (6-20) mg/dL Creatinine 0.75 0.77 (0.60-1.20) mg/dL Glucose 105 100 (70-105) mg/dL Calcium 8.8 8.6 (8.6-10.3) mg/dL Adrenal panel 12/15/18 12/16/18 Range/Units 12:40 06:34 Sodium 136 136 (136-145) mEq/L Potassium 3.8 3.6 (3.5-5.1) mEq/L Chloride 104 101 (98-107) mEq/L Carbon Dioxide 26 27 (23-29) mEq/L BUN 9 6 (6-20) mg/dL Creatinine 0.75 0.77 (0.60-1.20) mg/dL Glucose 105 100 (70-105) mg/dL Calcium 8.8 8.6 (8.6-10.3) mg/dL Consult Discharge Plan - Plan Referrals: Isaac Beltran DO [Primary Care Provider] -
[2018-12-17] MEDS: Acetaminophen IV 1,000 MG/100 ML INFUS..BTL IVPB SCH ×2 (00:10→05:21)
[2018-12-17] MEDS: MetroNIDAZOLE 500 MG/100 ML 500 MG/100 ML BAG IVPB SCH ×2 (00:10→06:57)
[2018-12-17 02:52] LABS: Basophils % 0.6 %; Eosinophils # 0.2 K/mcL (0.0-0.6); Eosinophils % 3.8 %; Hematocrit 34.6 % (35.3-44.9); Hemoglobin 10.7 g/dL (11.5-15.4); Immature Granulocytes % 0.6 % (0-4); Lymphocytes # 1.5 K/mcL (0.6-4.6); Lymphocytes % 28.8 %; Mean Corpuscular HGB Conc 30.9 g/dL (31.6-35.5); Mean Corpuscular Hemoglobin 30.7 pg (28.0-33.3); Mean Corpuscular Volume 99.4 fL (83.0-100.0); Mean Platelet Volume 10.1 fL (9.4-12.4); Monocytes # 0.5 K/mcL (0.0-1.3); Monocytes % 8.7 %; Platelet Count 301 K/mcL (140-400); Red Blood Count 3.48 M/mcL (3.82-4.97); Red Cell Distribution Width 13.1 % (11.5-14.5); Segmented Neutrophils % 57.5 %; White Blood Count 5.3 K/mcL (4.3-11.1)
[2018-12-17 03:06] LABS: BUN/Creatinine Ratio 8 (6-26); Blood Urea Nitrogen 6 mg/dL (6-20); Calcium 8.5 mg/dL (8.6-10.3); Carbon Dioxide 27 mEq/L (23-29); Chloride 103 mEq/L (98-107); Glucose 115 mg/dL (70-105); Magnesium 1.9 mg/dL (1.6-2.6); Osmolality,Calculated 281 (280-300); Phosphorous 3.5 mg/dL (2.7-4.5); Potassium 3.8 mEq/L (3.5-5.1); Sodium 136 mEq/L (136-145); eGFR For African Americans > 60 (> 60); eGFR For Non-African Americans > 60 (> 60)
[2018-12-17] MEDS: 0.9 % Sodium Chloride 1,000 ML IVC SCH ×2 (05:22→08:26)
[2018-12-17] MEDS: *HR* Heparin 5,000 UNIT/ML VIAL SQ SCH (05:22)
[2018-12-17 06:56] VITALS: BP 127/81
[2018-12-17] MEDS: Pantoprazole 40 MG VIAL IVP SCH (07:45)
[2018-12-17] MEDS: Nicotine 14 MG PATCH.TD24 TD SCH (07:46)
--- NOTE | 2018-12-17 08:20 | Discharge Summary ---
Orders not resulted at time of discharge: Pending orders 12/15/18 15:36 Culture,Anaerobic [RM] Stat Culture,Wound [RM] Stat Fungal Culture [MYC] Stat 12/15/18 18:49 Culture,Blood [BC] Stat Date of Encounter: 12/17/18 Time of Encounter: 08:17 - Discharge Diagnosis (1) Diverticulitis of colon with perforation Priority: Primary Status: Acute Qualifiers: Diverticulitis bleeding: unspecified bleeding status Qualified Code(s): K57.20 - Diverticulitis of large intestine with perforation and abscess without bleeding (2) Smoking addiction Priority: Secondary Status: Acute General Surgery Exam Initial Vital Signs Temp Pulse Resp BP Pulse Ox 98.6 F 110 18 130/88 98 12/15/18 12:23 12/15/18 12:23 12/15/18 12:23 12/15/18 12:23 12/15/18 12:23 - Hospital Course Hospital course: Ms. Smith is a 33 year old female who presented to [facility] with symptoms of left lower quadrant abdominal pain for several days. She actually been treated previously at 1-2 weeks prior for diverticulitis with biotics without success. She presented on 12/15/[address] scan showed evidence of a diverticulitis with localized abscess in the pelvis. Individual radiology was consulted and placed a percutaneous drain in a patient was continued on IV antibiotics with the next 48 hours. She was able to tolerate a by mouth diet and actually had decreased abdominal pain and because of her improving symptoms she eventually was discharged home on 12/09/2018 with instructions to follow-up with [place] [facility] on 12/21/2018 for evaluation of the KERI drain. Time spent discussing smoking cessation with patient: 3 to 10 minutes - Time Spent with Patient Total time spent providing and/or coordinating discharge services: Less than 30 minutes - Discharge Medications Prescriptions: New Ciprofloxacin HCl [Cipro] 500 mg PO BID 14 Days #28 tablet Docusate [Colace] 100 mg PO BID 15 Days #30 capsule metroNIDAZOLE [Flagyl] 500 mg PO BID 14 Days #28 tablet OxyCODONE/APAP 5/325 [Percocet 5/325 MG] 1 each PO Q6HR PRN 7 Days #28 tablet PRN Reason: Pain No Action Sertraline [Zoloft] 50 mg PO DAILY Loratadine [Claritin] 10 mg PO DAILY Buspirone HCl [Buspar] 5 mg PO BID PRN PRN Reason: Anxiety Home Medications: Sertraline [Zoloft] 50 mg PO DAILY 06/13/17 [History] Loratadine [Claritin] 10 mg PO DAILY 11/23/18 [History] Buspirone HCl [Buspar] 5 mg PO BID PRN 12/16/18 [History] Ciprofloxacin HCl [Cipro] 500 mg PO BID 14 Days #28 tablet 12/17/18 [Rx] Docusate [Colace] 100 mg PO BID 15 Days #30 capsule 12/17/18 [Rx] OxyCODONE/APAP 5/325 [Percocet 5/325 MG] 1 each PO Q6HR PRN 7 Days #28 tablet 12/17/18 [Rx] metroNIDAZOLE [Flagyl] 500 mg PO BID 14 Days #28 tablet 12/17/18 [Rx] Allergies/Adverse Reactions: Allergy/AdvReac Type Severity Reaction Status Date / Time azithromycin [From Zithromax] Allergy Hives Verified 12/16/18 13:36 ibuprofen Allergy Hives Verified 12/16/18 13:36 lamotrigine [From Lamictal] Allergy Hives Verified 12/16/18 13:36 Penicillins [PCN] Allergy Hives Verified 12/16/18 13:36 tramadol AdvReac Nausea Verified 12/16/18 13:36 Date of admission: 12/15/18 18:32 Primary care physician: Isaac Beltran DO Consults: 12/15/18 14:19 Consult to Surgery [CONS] Stat Consulting Provider: Acute Care Surgery Reason for Consult: pericolic abscess Time Notified: 14:19 Call Completed: Yes 12/15/18 14:21 Consult to Interventional Radiology [CONS] Stat Consulting Provider: Radiology Interventional Cols Reason for Consult: divertic, abscess Call Completed: No 12/15/18 15:09 Consult to Medicine Aide [CONS] Routine Reason for SW Consult: drain care ([facility]) 12/15/18 17:30 Consult to Nutrition [CONS] Routine Comment: Consulting Provider: NUTRITION Reason for Dietary Consult: MST Score Discharging clinician: Chao Freeman Anticipated date of discharge: 12/17/18 Labs on day of discharge: Labs from last 24 hours 12/17/18 12/17/18 02:01 02:01 WBC 5.3 RBC 3.48 L Hgb 10.7 L Hct 34.6 L MCV 99.4 MCH 30.7 MCHC 30.9 L RDW 13.1 Plt Count 301 MPV 10.1 Immature Gran % 0.6 Seg Neutrophils % 57.5 Lymphocytes % 28.8 Monocytes % 8.7 Eosinophils % 3.8 Basophils % 0.6 Neutrophils # 3.0 Lymphocytes # 1.5 Monocytes # 0.5 Eosinophils # 0.2 Basophils # 0.0 Sodium 136 Potassium 3.8 Chloride 103 Carbon Dioxide 27 BUN 6 Creatinine 0.77 Est GFR ( Amer) > 60 Est GFR (Non-Af Amer) > 60 BUN/Creatinine Ratio 8 Glucose 115 H Calculated Osmolality 281 Calcium 8.5 L Phosphorus 3.5 Magnesium 1.9 Preliminary micro results at discharge 12/15/18 15:36 Wound Culture - Preliminary Abscess Gram Negative Mitch 12/15/18 18:49 Blood Culture - Preliminary Peripheral Venipuncture Culture is incubating and being continuously monitored for growth. Final report to follow. 12/15/18 14:32 Blood Culture - Preliminary Peripheral Venipuncture Culture is incubating and being continuously monitored for growth. Final report to follow. 12/15/18 15:36 Anaerobic Culture - Preliminary Aspirate Culture is incubating. - Impressions ITS Impressions Needle Aspiration CT 12/15/18 00:00 IMPRESSION: Successful CT guided placement of pelvic diverticular abscess drainage catheter. D/ / 12/15/2018 15:40:49 Gabriella Barahona MD / bcarter Interpreting Provider: Gabriella Barahona MD Abdomen/Pelvis CT 12/15/18 12:37 IMPRESSION: Persistent findings compatible with sigmoid diverticulitis as compared to prior exam 11/29/2018, worsened. In addition there has been interval development of adjacent abscess with internal gas measuring 5.9 x 6.0 x 5.1 cm. No definite intraperitoneal free air noted. Mass effect on the underlying urinary bladder by the abscess along with likely some reactive wall thickening to the superior urinary bladder wall. Persistent small amount of free fluid predominantly within the pelvis, likely reactive. D/ /15/2018 14:09:03 Armando Santos MD / [email or web address] Interpreting Provider: Armando Santos MD - Patient Status Disposition: Home, Self-Care Condition: Good - Discharge Instructions Follow Up With: Isaac Beltran DO [Primary Care Provider] - Additional Instructions: No heavy lifting greater than 15lbs for two weeks. May not return to work for two weeks. My office will contact the patient to schedule a follow up appointment early this week for , 12/21/18.
== END 2018-12-17 09:05 | disposition home or self-care (01) | DRG 244 ==
LOC: EMEROOARM 12:21 → 3ANU 12:21
PROVIDERS: ADMIT Surgery; ATTEND Surgery
PROC: IRDRAIN (2018-12-15 15:00)

== ENCOUNTER 2018-12-20 20:22 | Observation (INO) ==
[2018-12-20] MEDS ORDERED: Isovue-370 500 ML BOTTLE IVP ONE (20:52)
[2018-12-20] MEDS: 0.9 % Sodium Chloride 1,000 ML IVC SCH ×2 (21:12→23:44)
[2018-12-20 21:16] LABS: Basophils % 0.2 %; Eosinophils # 0.2 K/mcL (0.0-0.6); Eosinophils % 1.1 %; Hematocrit 39.2 % (35.3-44.9); Hemoglobin 12.7 g/dL (11.5-15.4); Immature Granulocytes % 0.5 % (0-4); Lymphocytes # 2.3 K/mcL (0.6-4.6); Lymphocytes % 15.6 %; Mean Corpuscular HGB Conc 32.4 g/dL (31.6-35.5); Mean Corpuscular Hemoglobin 30.8 pg (28.0-33.3); Mean Corpuscular Volume 95.1 fL (83.0-100.0); Mean Platelet Volume 9.3 fL (9.4-12.4); Monocytes # 0.9 K/mcL (0.0-1.3); Monocytes % 6.3 %; Neutrophils # 11.3 K/mcL (1.6-8.9); Platelet Count 368 K/mcL (140-400); Red Blood Count 4.12 M/mcL (3.82-4.97); Red Cell Distribution Width 13.1 % (11.5-14.5); Segmented Neutrophils % 76.3 %; White Blood Count 14.9 K/mcL (4.3-11.1)
[2018-12-20 21:24] LABS: INR 1.3; Prothrombin Time 14.2 Seconds (9.4-12.1)
[2018-12-20 21:27] LABS: Activated Partial Thrombo Time 30.4 Seconds (26.0-36.0)
[2018-12-20 21:39] LABS: Alanine Aminotransferase 11 Units/L (7-52); Albumin 3.6 g/dL (3.5-5.7); Albumin/Globulin Ratio 1.1 (1.1-2.2); Alkaline Phosphatase 60 Units/L (34-104); Aspartate Amino Transferase 10 Units/L (13-39); BUN/Creatinine Ratio 12 (6-26); Bilirubin,Direct 0.1 mg/dL (0.0-0.2); Bilirubin,Indirect 0.4 mg/dL (0.0-1.2); Bilirubin,Total 0.5 mg/dL (0.3-1.0); Blood Urea Nitrogen 8 mg/dL (6-20); Calcium 8.8 mg/dL (8.6-10.3); Carbon Dioxide 25 mEq/L (23-29); Chloride 102 mEq/L (98-107); Globulin 3.2 g/dL (2.4-3.5); Glucose 102 mg/dL (70-105); Magnesium 1.9 mg/dL (1.6-2.6); Osmolality,Calculated 279 (280-300); Phosphorous 2.5 mg/dL (2.7-4.5); Potassium 3.6 mEq/L (3.5-5.1); Sodium 135 mEq/L (136-145); Total Protein 6.8 g/dL (6.4-8.9); Troponin I < 0.03 ng/mL (< 0.04); eGFR For African Americans > 60 (> 60); eGFR For Non-African Americans > 60 (> 60)
[2018-12-20 21:55] LABS: Bilirubin,Urine Negative (Negative); Blood,Urine Negative (Negative); Clarity,Urine Clear (Clear); Color,Urine Yellow (Yellow); Glucose,Urine (UA) Normal (Normal); Ketones,Urine Negative (Negative); Leukocyte Esterase,Urine Negative (Negative); Nitrite,Urine Negative (Negative); PH,Urine 6.5 pH Units (5.0-8.0); Protein,Urine Negative (Neg-Trace); Specific Gravity,Urine 1.008 (1.010-1.025); Urobilinogen,Urine Normal (Normal)
[2018-12-20] MEDS ORDERED: Meropenem 1,000 MG in Water for inj. (sterile) 10 ML IVP SCH (22:00)
[2018-12-20] MEDS ORDERED: methylPREDNISolone 125 MG/2 ML VIAL IVP ONE (22:39)
[2018-12-21] MEDS ORDERED: Morphine Sulfate 2 MG/ML SYRINGE IVP ONE ×2 (00:04→00:15)
[2018-12-21] MEDS ORDERED: *HR* HYDROcodone/Acet 5/325 mg TABLET PO PRN (01:20)
[2018-12-21] MEDS ORDERED: Naloxone 0.4 MG/ML INJ IVP PRN (01:20)
[2018-12-21] MEDS ORDERED: Ondansetron ODT 4 MG TAB.RAPDIS SL PRN (01:20)
[2018-12-21] MEDS: 0.9 % Sodium Chloride 1,000 ML IVC SCH ×3 (01:37→16:11)
[2018-12-21 02:12] LABS: Basophils % 0.1 %; Eosinophils % 0.2 %; Hematocrit 39.8 % (35.3-44.9); Hemoglobin 12.8 g/dL (11.5-15.4); Immature Granulocytes % 0.4 % (0-4); Lymphocytes # 1.2 K/mcL (0.6-4.6); Mean Corpuscular HGB Conc 32.2 g/dL (31.6-35.5); Mean Corpuscular Volume 96.4 fL (83.0-100.0); Mean Platelet Volume 9.2 fL (9.4-12.4); Monocytes # 0.3 K/mcL (0.0-1.3); Monocytes % 1.5 %; Neutrophils # 14.9 K/mcL (1.6-8.9); Platelet Count 347 K/mcL (140-400); Red Blood Count 4.13 M/mcL (3.82-4.97); Red Cell Distribution Width 13.2 % (11.5-14.5); Segmented Neutrophils % 90.8 %; White Blood Count 16.4 K/mcL (4.3-11.1)
[2018-12-21] MEDS: MetroNIDAZOLE 500 MG/100 ML 500 MG/100 ML BAG IVPB SCH ×3 (07:45→23:27)
[2018-12-21] MEDS ORDERED: Fluconazole 400 MG/200 ML 400 MG/200 ML BAG IVPB ONE (08:25)
[2018-12-21] MEDS: levoFLOXacin 750 MG/150 ML 750 MG/150 ML BAG IVPB SCH (09:06)
[2018-12-21] MEDS: *HR* OxyCODONE/APAP 7.5/325 TABLET PO PRN ×2 (12:05→19:59)
[2018-12-21] MEDS: Psyllium 1 PACKET POWD.PACK PO SCH (19:53)
[2018-12-22] MEDS ORDERED: HydrOXYzine SYP 10 MG/5 ML UDC PO ONE (03:00)
[2018-12-22] MEDS: *HR* OxyCODONE/APAP 7.5/325 TABLET PO PRN ×3 (04:39→17:57)
[2018-12-22 05:46] LABS: Basophils % 0.1 %; Eosinophils % 0.2 %; Hemoglobin 11.4 g/dL (11.5-15.4); Immature Granulocytes % 0.6 % (0-4); Lymphocytes # 2.5 K/mcL (0.6-4.6); Lymphocytes % 18.1 %; Mean Corpuscular HGB Conc 31.7 g/dL (31.6-35.5); Mean Corpuscular Hemoglobin 30.7 pg (28.0-33.3); Mean Platelet Volume 9.2 fL (9.4-12.4); Monocytes # 0.6 K/mcL (0.0-1.3); Neutrophils # 10.7 K/mcL (1.6-8.9); Platelet Count 339 K/mcL (140-400); Red Blood Count 3.71 M/mcL (3.82-4.97); Red Cell Distribution Width 13.2 % (11.5-14.5); White Blood Count 13.9 K/mcL (4.3-11.1)
[2018-12-22 06:04] LABS: BUN/Creatinine Ratio 19 (6-26); Blood Urea Nitrogen 11 mg/dL (6-20); Calcium 8.7 mg/dL (8.6-10.3); Carbon Dioxide 25 mEq/L (23-29); Chloride 109 mEq/L (98-107); Glucose 166 mg/dL (70-105); Osmolality,Calculated 287 (280-300); Potassium 3.9 mEq/L (3.5-5.1); Sodium 137 mEq/L (136-145); eGFR For African Americans > 60 (> 60); eGFR For Non-African Americans > 60 (> 60)
[2018-12-22] MEDS: MetroNIDAZOLE 500 MG/100 ML 500 MG/100 ML BAG IVPB SCH ×2 (07:29→16:35)
[2018-12-22] MEDS: levoFLOXacin 750 MG/150 ML 750 MG/150 ML BAG IVPB SCH (08:45)
[2018-12-22] MEDS: Psyllium 1 PACKET POWD.PACK PO SCH (08:45)
[2018-12-22] MEDS ORDERED: Fluconazole 200 MG/100 ML 200 MG/100 ML BAG IVPB SCH (09:00)
[2018-12-22 19:59] VITALS: BP 129/69
== END 2018-12-22 21:49 | disposition short-term general hospital (02) | DRG 720 ==
LOC: EMEROOARM 20:22 → 3NENU 20:22
PROVIDERS: ADMIT Surgery; ATTEND Surgery